=== PATIENT | male | born 1940 | race Caucasian/White ===

== ENCOUNTER 2020-08-04 12:46 | Emergency (ER) | payer MEDICARE, SELFPAY ==
[2020-08-04] VITALS (24 sets, daily range): BP systolic 96–115; BP diastolic 63–75; PULSE 82–91; RESP 13–28; TEMP 36.8; O2SAT 95–100
--- NOTE | ~2020-08-04 | CT_ITS ---
EXAMINATION: CT brain wo con DATE: 08/04/2020 17:01 INDICATION: Altered mental status. Lethargy. TECHNIQUE: Computed tomography (CT) of the head was performed without intravenous contrast. Sagittal and coronal reconstructions were performed. The mA was adjusted according to patient size. Iterative reconstruction technique was employed. The dose-length product was 605.33 mGy-cm. COMPARISON: None FINDINGS: There are bilateral small old lacunar infarcts at the caudate nuclei, slightly larger on the left whe re it extends into the internal capsule. No acute intracranial hemorrhage, acute infarction or abnorm al extra axial fluid collection. There is mild to moderate scattered white matter hypoattenuation con sistent with chronic small vessel ischemic disease. Symmetric prominence of the sulci and ventricles consistent with moderate age-appropriate diffuse cerebral volume loss. Ventricles are normal and symm etric. There is an empty sella . No mass/mass effect. The orbits, paranasal sinuses and mastoid air cells are normal. IMPRESSION: 1. No acute intracranial process. 2. 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 3. Age-related changes including moderate diffuse volume loss and mild to moderate scattered white ma tter hypoattenuation consistent with chronic small vessel ischemic disease. 4. Empty sella Reviewed, dictated and finalized at location A. IMPRESSION: 1. No acute intracranial process. 2. 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 3. Age-related changes including moderate diffuse volume loss and mild to moder ate scattered white matter hypoattenuation consistent with chronic small vessel ischemic disease. 4. Empty sella
--- NOTE | ~2020-08-04 | CT_ITS ---
EXAMINATION: CT abdomen pelvis w con DATE: 08/04/2020 17:02 INDICATION: Infection TECHNIQUE: Computed tomography (CT) of the abdomen and pelvis was performed with 100 mL Omnipaque-350 intravenous contrast. Automated exposure control and iterative reconstruction technique were employe d. The dose-length product was 1172.88 mGy-cm. COMPARISON: None FINDINGS: Passive atelectasis in the dependent aspect of the bilateral lower lobes. There are small centrilobul ar groundglass nodules with tree-in-bud pattern in the right middle and lower lobes consistent with e ndobronchial spread of disease, most likely pneumonia. Heart size is normal. Atherosclerotic coronary artery calcification. No pericardial or pleural effusion. Small sliding-type hiatal hernia. Partiall y visualized old fracture deformity at the proximal right humerus. Multiple small calcified gallstones in the dependent aspect of the normal-appearing gallbladder with no dilation, wall thickening or pericholecystic inflammatory stranding to suggest acute cholecystitis . Liver is normal. No intra or extra hepatic biliary ductal dilation. Spleen, pancreas, bilateral adr enal glands and right kidney are normal. There are few small low-attenuation right renal cysts, the l argest measuring 1.3 cm. Postoperative changes in the region of the cecum with right lower quadrant ileocolic anastomosis. The re is some surrounding inflammatory stranding and mesenteric edema along with numerous small likely r eactive mesenteric lymph nodes. Oral contrast is seen in the colon distal to the anastomosis beginnin g at the hepatic flexure and becoming progressively more dense extending all the way to the rectum. T here is some subcutaneous gas and some gas containing debris along a dehiscent midline surgical wound . A small knuckle of small bowel projects into the deep aspect of the dehiscent wound. Near this segm ent of small bowel there is a small amount of high attenuation material in the soft tissues at the le ft margin of the dehiscence which appears more amorphous than the surgical clips and suture lines and could not exclude small amount of extravasated contrast which could be either intravenous or oral co ntrast. This can be best appreciated on axial series 3, images 90-101 on coronal series 601, images 2 3-26. Small amount of gas in the nondependent bladder which may be related to recent Smith catheterization. No drainable abscess or free intraperitoneal gas or fluid. Old healed intertrochanteric fracture of the proximal right femur with antegrade intramedullary omer and dynamic femoral neck compression screw fixation. There is also a lateral plate and screws along the more distally along the proximal diaphy sis. Severe disc height loss at L2-L3. Otherwise mild to moderate thoracolumbar spondylosis. Moderate bilateral hip osteoarthritis. IMPRESSION: 1. Postoperative change of prior bowel surgery with ileocolic anastomosis in the right lower quadrant and dehiscent midline surgical wound. A small knuckle of small bowel projects into the deep margin o f the dehiscent wound with small amount of amorphous high attenuation material in the abdominal wall along the dehiscent wound which raises suspicion for contrast extravasation, unclear whether intraven ous in the setting of a bleed or oral contrast related to a bowel perforation. 2. Small centrilobular groundglass nodules and tree-in-bud pattern in the right middle and lower lobe s consistent with pneumonia and/or aspiration. 3. Small sliding-type hiatal hernia. 4. Cholelithiasis. Reviewed, dictated and finalized at location A. IMPRESSION: 1. Postoperative change of prior bowel surgery with ileocolic anastomosis in th e right lower quadrant and dehiscent midline surgical wound. A small k
--- NOTE | 2020-08-04 13:09 | ED.AMS ---
HPI - Altered Mental Status General Chief Complaint: Altered Mental Status Stated Complaint: AMS Time Seen by Provider: 08/04/20 12:58 History of Present Illness HPI narrative: 80 yo male w/ h/o dementia and recent bowel resection surgery at another hospital brought in by EMS from custodial for altered mental status. He is normally A&O 2. This morning he was noted to be less than that. On my evaluation he is awake, but not speaking or following commands. No clear last know well provided. Surgery was done in [place]. Related Data Allergies Allergy/AdvReac Type Severity Reaction Status Date / Time No Known Allergies Allergy Unknown Unverified 04/15/07 08:01 Review of Systems Review of Systems: ROS unobtainable: Yes unobtainable due to mental status Exam HENMT: Head: no contusions Mouth: Yes dry mucous membranes Eyes: Pupils: Equal, round and reactive pupils present Other: sunken Neck: Neck: normal visual inspection Chest: Chest palpation & inspection: normal inspection of the chest Resp: Effort & Inspection: normal respiratory effort Auscultation: clear to auscultation bilaterally Cardio: Rate: regular rate Rhythm: regular rhythm GI: Other: open midline surgical wound with sponge in place Skin: General skin exam: normal color Extrem: General: normal to inspection Course Vital Signs Vital signs: Vital Signs Temperature 36.8 C 08/04/20 12:54 Pulse Rate 83 08/04/20 12:54 Respiratory Rate 18 08/04/20 12:54 Blood Pressure 103/66 08/04/20 12:54 Temperature 37.2 C 08/05/20 10:38 Pulse Rate 87 08/05/20 12:16 Respiratory Rate 21 H 08/05/20 12:16 Blood Pressure 104/69 08/05/20 12:16 Pulse Oximetry 95 08/05/20 12:16 MDM - Altered Mental Status MDM Narrative Medical decision making narrative: CT concerning for possible contrast extravasation. Unclear if this is new or old. I called over to [facility] multiple times trying to speak to someone before getting the surgeon cotton program technician. He did not provide any information as to the chronicity of this finding and recommended transfer to their facility for further evaluation. I think that this is most likely a chronic finding, but I have no way of confirming this. It will need to be evaluated by a surgeon and given that his surgery was done there I believe that transfer is appropriately. Differential Diagnosis Differential diagnosis: Likely altered mental status, delirium, dementia, hypoglycemia, hyponatremia, subarachnoid hemorrhage, sepsis and other (UTI, dehydrationm) Medical Records Attestation: I reviewed the patient's medical records. Lab Data Attestation: I reviewed the patient's lab results. Result diagrams: 08/04/20 16:18 08/04/20 16:18 Labs: Lab Results 08/04/20 08/04/20 08/04/20 Range/Units 13:36 13:54 16:18 WBC 5.5 (4.5-10.0) K/mm3 RBC 4.40 L (4.6-6.20) M/mm3 Hgb 10.8 L (14.0-18.0) g/dL Hct 35.4 L (42.0-52.0) % MCV 80.5 (80-100) fl MCH 24.5 L (26-34) pg MCHC 30.5 L (32-36) g/dl RDW 14.8 H (11.5-14.5) % Plt Count 262 (150-375) k/mm3 MPV 10.0 (7.4-10.4) fl Immature Gran % (Auto) 0.2 (0-0.5) % Neut % (Auto) 55.7 (45.5-73.1) % Lymph % (Auto) 27.9 (18.3-44.2) % Boone % (Auto) 11.9 H (2.6-8.5) % Eos % (Auto) 3.9 (0-4.4) % Baso % (Auto) 0.4 (0.2-1.2) % Lymph # (Auto) 1.52 (0.9-3.2) K/mm3 Boone # (Auto) 0.7 H (0.1-0.6) K/mm3 Eos # (Auto) 0.2 (0-0.3) K/mm3 Baso # (Auto) 0.0 (0.0-0.1) K/mm3 Abs Immat Gran (auto) 0.01 (0.00-0.031) K/mm3 Absolute Neuts (auto) 3.0 (1.3-6.7) K/mm3 Absolute Nucleated RBC 0.0 (0.0-0.012) K/mm3 Nucleated RBC % 0.0 (0.0-0.2) % PT (11.1-14.7) Seconds INR APTT (22.3-36.8) SECONDS Sodium (137-145) mmol/L Potassium (3.4-5.0) mmol/L Chloride (98-107) mmol/L Carbon Dioxide (22-30) mmol/L Anion Gap (8-16) mmol/L BUN
--- NOTE | 2020-08-04 13:23 | ECG_ITS ---
Measurements Intervals Mccall Rate: 84 P: 44 WI: 241 QRS: 17 QRSD: 93 T: 42 QT: 361 QTc: 428 Interpretive Statements SINUS RHYTHM WITH FIRST DEGREE AV BLOCK EARLY PRECORDIAL R/S TRANSITION BASELINE ARTIFACT- II, III, V1, V3-V6 ABNORMAL ECG Electronically Signed On 08-04-2020 14:27:51 CDT by Jair Ulloa D.O.
[2020-08-04 13:52] LABS: Add Urine Microscopic? YES; Appearance Urine Clear (Clear); Bilirubin Urine Negative (Negative); Blood Urine Negative (Negative); Color Urine Yellow (Yellow); Glucose Urine UA Negative (Negative); Ketones Urine Negative (Negative); Leukocyte Esterase Ur Negative LEU/UL (Negative); Mucus Urine Rare /lpf; Nitrate Urine Negative (Negative); Protein Urine Negative (Negative); RBC Urine 0-2 /hpf (0-2); Specific Grav Ur 1.011 (1.001-1.035); Squamous Epithelial Cell Urine Rare /hpf (Few); Urobilinogen Urine Negative mg/dL (<2.0); WBC Urine 0-3 /hpf
[2020-08-04 14:13] LABS: Glucose Point of Care 95 mg/dl (65-105)
[2020-08-04 16:25] LABS: Basophils Percent Auto 0.4 % (0.2-1.2); Eosinophils Absolute Auto 0.2 K/mm3 (0-0.3); Eosinophils Percent Auto 3.9 % (0-4.4); Hematocrit 35.4 % (42.0-52.0); Hemoglobin 10.8 g/dL (14.0-18.0); Immature Granulocyte Absolute 0.01 K/mm3 (0.00-0.031); Immature Granulocyte Percent A 0.2 % (0-0.5); Lymphocytes Absolute Auto 1.52 K/mm3 (0.9-3.2); Lymphocytes Percent Auto 27.9 % (18.3-44.2); Mean Corpuscular HGB Conc 30.5 g/dl (32-36); Mean Corpuscular Hemoglobin 24.5 pg (26-34); Mean Corpuscular Volume 80.5 fl (80-100); Monocytes Absolute Auto 0.7 K/mm3 (0.1-0.6); Monocytes Percent Auto 11.9 % (2.6-8.5); Neutrophils Percent Auto 55.7 % (45.5-73.1); Platelet Count Result 262 k/mm3 (150-375); Red Cell Distribution Width 14.8 % (11.5-14.5); White Blood Count 5.5 K/mm3 (4.5-10.0)
[2020-08-04 16:34] LABS: INR 1.2; Prothrombin Time 15.5 Seconds (11.1-14.7)
[2020-08-04 16:35] LABS: Partial Thromboplastin Time 28.1 SECONDS (22.3-36.8)
[2020-08-04 16:37] LABS: Alanine Aminotransferase 7 U/L (4-50); Albumin Level 3.3 g/dL (3.5-5.1); Alkaline Phosphatase 169 U/L (38-126); Anion Gap 7 mmol/L (8-16); Aspartate Amino Transferase 23 U/L (17-59); Bilirubin,Total 0.4 mg/dL (0.2-1.3); Blood Urea Nitrogen 8 mg/dL (9-20); CRP 2.9 mg/dL (<1.0); Calcium 9.3 mg/dL (8.4-10.2); Carbon Dioxide 29 mmol/L (22-30); Chloride 103 mmol/L (98-107); Estimated CRCL calculation 54 ml/min; Estimated Glomerular Filt Rate > 60; Glucose 98 mg/dL (75-110); Potassium 4.4 mmol/L (3.4-5.0); Sodium 139 mmol/L (137-145)
[2020-08-04] MEDS: SODIUM CHLORIDE 0.9% IV 1,000 ML 999 ML IV CONT ×2 (17:06→20:35)
[2020-08-04] MEDS: DEXTROSE 5%/LACTATED RINGERS 1,000 ML 75 ML IV CONT (22:13)
--- NOTE | 2020-08-04 23:38 | PC.NURSE ---
Addendum entered by Madalyn Miller 08/05/20 04:56: 0456: Called [facility] again, declined. Said to check back at 0700 (crew change) and maybe they will be able to transport. Original Note: 2233: CALLED [facility] TO TRANSPORT PATIENT TO [facility]...NEEDS STATE COMPTROLLER APPROVAL...WCB 2331: CALLED [facility] FOR TRANSPORT...DECLINED 2334: CALLED [facility]...DECLINED 2335: CALLED [facility]...DECLINED 2336: CALLED [facility] FOR STATUS ON STATE COMPTROLLER APPROVAL...NOT ABLE TO TRANSPORT TONIGHT, WILL RE-EVALUATE IN THE MORNING.
[2020-08-05] VITALS (10 sets, daily range): BP systolic 91–104; BP diastolic 59–75; PULSE 81–92; RESP 15–21; TEMP 37.2–37.4; O2SAT 95–100
--- NOTE | 2020-08-05 01:36 | PC.NURSE ---
pt moved to a hospital bed, given a sandwich and a drink , ems not available for transport until 08/05/20 , possible afternoon
--- NOTE | 2020-08-05 03:08 | PC.NURSE ---
Pt on cart sleeping. Call button and personal items within reach. Vitals are stable and pt is in no obvious distress at this time.
--- NOTE | 2020-08-05 04:05 | PC.NURSE ---
Pt noted to desaturated to 86% while sleeping. Pt placed on 2 liters of O2 and is now saturating at 100%. Pt remains alert and oriented and in no obvious distress. Vitals are stable. Abdominal wound noted to be draining brown fluid and malodorous. Area cleansed and sterile gauze applied and abdominal binder replaced. Pt now resting no cart with call button and personal items within reach. No complaints or concerns voiced at this time.
--- NOTE | 2020-08-05 04:35 | PC.NURSE ---
Pt resting on cart in its lowest position with call button and personal items within reach. Vitals are stable and pt in no obvious distress. Pt continues to tolerate O2 at 2 liters well with O2 saturation of 100%.
--- NOTE | 2020-08-05 05:22 | PC.NURSE ---
Pt continues sleeping on cart with stable vitals and in no obvious distress. Call button and personal items within reach.
--- NOTE | 2020-08-05 06:30 | PC.NURSE ---
Pt remains sleeping on cart with call button and personal items within reach. Pt checked for incontinence and brief remains clean and dry. Vitals remain stable and pt in no obvious distress at this time.
--- NOTE | 2020-08-05 07:15 | PC.NURSE ---
Pt asleep easily arousable, non-labored respirations, 100% O2 sats on 2L NC. Call light within reach, blanket provided. Plan for transfer to [facility], transport arrangement ongoing
[2020-08-05] MEDS: ERTAPENEM 1 GM/NS 50 ML 1 GM/50 ML BAG IVPB (08:44)
--- NOTE | 2020-08-05 09:00 | PC.NURSE ---
Pt awake, resting on cart, watching television. Non-labored respirations, IV fluid infusing. Call light within reach, extra blanket provided
[2020-08-05] MEDS: SODIUM CHLORIDE 0.9% IV 1,000 ML 999 ML IV CONT (09:41)
--- NOTE | 2020-08-05 10:40 | PC.NURSE ---
Gauze pads changed to L abd wound (wound vac sponge inside wound. Purulent light brown exudate on soiled gauze). Incontinent of large amt of urine, pericare provided, diaper and linens changed. Pt repositioned on cart HOB elevated. Pt AOx3, non-labored respirations, asking for something to eat
--- NOTE | 2020-08-05 11:16 | PC.NURSE ---
[facility] to transport pt to [facility] in [place], per previous report pt accepted to [facility]m [id number], report called yesterday to Anny CASILLAS
--- NOTE | 2020-08-05 11:19 | PC.NURSE ---
I spoke with Rachelle CASILLAS at [facility] pt transfer center ([phone]), aware pt will be arriving when transport is here
== END 2020-08-05 12:21 | disposition short-term general hospital (02) ==
PROVIDERS: Emergency Provider Emergency Medicine; PCP Emergency Medicine
DX: R41.82 Altered mental status, unspecified (principal); K91.89 Other postprocedural complications and disorders of digestive system; F03.90 Unspecified dementia, unspecified severity, without behavioral disturbance, psychotic disturbance, mood disturbance, and anxiety; E86.0 Dehydration; I44.0 Atrioventricular block, first degree; E23.6 Other disorders of pituitary gland; K80.20 Calculus of gallbladder without cholecystitis without obstruction; K44.9 Diaphragmatic hernia without obstruction or gangrene
CPT/HCPCS: 36415; 51701; 70450; 74177; 80053; 81001; 82948; 83605; 85025; 85610; 85730; 86140; 87040; 93005; 96361; 96365; 99285; J1335; J7030; J7121; Q9967